=== PATIENT | male | born 1960 | race Caucasian/White ===

== ENCOUNTER 2019-03-08 13:16 | Inpatient (IN) | payer OTHER ==
[2019-03-08 17:34] VITALS: BMI 26.0
--- NOTE | 2019-03-08 18:27 | HP ---
"CIWA Score Nausea/Vomitin-No Nausea/No Vomiting Muscle Tremors: 4-Moderate,w/Arms Extend Anxiety: 4-Mod. Anxious/Guarded Agitation: 1-Slight > Activity Paroxysmal Sweats: No Perspiration Orientation: 0-Oriented Tacttile Disturbances: 2-Mild Itch/Numbness/Burn Auditory Disturbances: 0-None Visual Disturbances: 0-None Headache: 2-Mild CIWA-Ar Total Score: 13 - Admission Criteria OASAS Guidelines: Admission for Medically Managed Detox: Requires at least one of the followin. CIWA greater than 12 2. Seizures within the past 24 hours 3. Delirium tremens within the past 24 hours 4. Hallucinations within the past 24 hours 5. Acute intervention needed for co occurring medical disorder 6. Acute intervention needed for co occurring psychiatric disorder 7. Severe withdrawal that cannot be handled at a lower level of care (continued vomiting, continued diarrhea, abnormal vital signs) requiring intravenous medication and/or fluids 8. Admitting History and Physical - Smoking History Smoking history: Current every day smoker Have you smoked in the past 12 months: Yes Aproximately how many cigarettes per day: 20 - Alcohol/Substance Use Hx Alcohol Use: Yes Admission ROS [facility] Allergies/Adverse Reactions: Allergies Allergy/AdvReac Type Severity Reaction Status Date / Time buprenorphine HCl Allergy Swelling Verified 03/08/19 17:34 [From Suboxone] naloxone HCl [From Suboxone] Allergy Swelling Verified 03/08/19 17:34 History of Present Illness: pt here requesting detox from etoh use , reports 1/4 gallon/day vodka, relapsed 2 mo after d/c form this facility, use x 2 years , latest use this morning, current symptoms as above . latest use this morning . on mmtp 9 mg [facility] x 2 years , mdd 50 mg tobacco : 1 ppd x 40 years pmhx : dm ii , neck pain states planning to have surgery next week, rescheduled 2/2 etoh use . This report was requested by: Dari Pham | Reference #: [id number] Others' Prescriptions Patient Name: Abdoul Munoz Date: 1960 Address: [address] [place] [address] [address] [place] [address] Sex: Male Rx Written Rx Dispensed Drug Quantity Days Supply Prescriber Name 12/11/2018 12/13/2018 lorazepam 0.5 mg tablet 60 30 Steven Gutierrez MD 10/22/2018 10/22/2018 lorazepam 0.5 mg tablet 60 30 Gutierrez, Steven LUTHER 09/24/2018 09/27/2018 lorazepam 0.5 mg tablet 60 30 Gutierrez, Steven LUTHER 08/23/2018 08/24/2018 lorazepam 0.5 mg tablet 60 30 Gutierrez, Steven LUTHER 07/26/2018 07/27/2018 lorazepam 0.5 mg tablet 60 30 Steven Gutierrez MD Patient Name: Abdoul Munoz Date: 1960 Address: [address] [place] [address] Sex: Male Rx Written Rx Dispensed Drug Quantity Days Supply Prescriber Name 11/19/2018 12/07/2018 lorazepam 0.5 mg tablet 31 16 Steven Gutierrez MD Patient Name: Abdoul Munoz Date: 1960 Address: [address] [place] [address] Sex: Male Rx Written Rx Dispensed Drug Quantity Days Supply Prescriber Name 06/25/2018 06/25/2018 lorazepam 0.5 mg tablet 60 30 Steven Gutierrez MD 05/17/2018 05/28/2018 lorazepam 0.5 mg tablet 60 30 Gutierrez, Steven LUTHER 04/19/2018 05/01/2018 lorazepam 0.5 mg tablet 60 30 Steven Gutierrez MD Exam Limitations: No Limitations - Ebola screening Have you traveled outside of the country in the last 21 days: No (N) Have you had contact with anyone from an Ebola affected area: No Do you have a fever: No - Review of Systems Constitutional: No Symptoms Reported EENT: reports: Other (glasses) Respiratory: reports: No Symptoms reported Cardiac: reports: No Symptoms Reported GI: reports: Constipated : reports: No Symptoms Reported Musculoskeletal: reports: See HPI Integumentary: reports: No Symptoms Reported Neuro: reports: Headache Endocrine: reports: See HPI Psychiatric: reports: Orientated x3, Anxious, Depressed Patient History - Patient Medical History Hx Anemia: No Hx Asthma: No Hx Chronic Obstructive Pulmonary Disease (COPD): No Hx Cancer: No Hx Cardiac Disorders: No Hx Congestive Heart Failure: No Hx Hypertension: No Hx Hypercholesterolemia: No Hx Pacemaker: No HX Cerebrovascular Accident: No Hx Seizures: No Hx Dementia: No Hx Diabetes: Yes (no longer on meds.) Hx Gastrointestinal Disorders: Yes (GERD) Hx Liver Disease: No Hx Genitourinary Disorders: No Hx Sexually Transmitted Disorders: No Hx Renal Disease (ESRD): No Hx Thyroid Disease: No Hx Human Immunodeficiency Virus (HIV): No Hx Hepatitis C: No Hx Depression: Yes Hx Suicide Attempt: No Hx Bipolar Disorder: No Hx Schizophrenia: No - Patient Surgical History Past Surgical History: Yes Hx Neurologic Surgery: Yes (cervical spine sx IN 2012) Hx Cataract Extraction: No Hx Cardiac Surgery: No Hx Lung Surgery: No Hx Breast Surgery: No Hx Breast Biopsy: No Hx Abdominal Surgery: No Hx Appendectomy: No Hx Cholecystectomy: No Hx Genitourinary Surgery: No Hx Section: No Hx Orthopedic Surgery: Yes (arthroscopic surgery of left shoulder) Other Surgical History: NECK SX-2012 cevical fusion Anesthesia Reaction: No - PPD History Date: 10/11/14 Results: 0 mm - Smoking Cessation Smoking history: Current every day smoker Have you smoked in the past 12 months: Yes Aproximately how many cigarettes per day: 20 Cigars Per Day: 0 Hx Chewing Tobacco Use: No Initiated information on smoking cessation: Yes 'Breaking Loose' booklet given: 03/08/19 - Substances abused Alcohol Substance route: Oral Frequency: Daily Amount used: 1/4 of Vodka Age of first use: 30 Date of last use: 03/08/19 Admission Physical Exam BHS - Vital Signs Vital Signs: Vital Signs - 24 hr 03/08/19 17:31 Temperature 97.9 F Pulse Rate 90 Respiratory 16 Rate Blood Pressure 171/88 H - Physical General Appearance: Yes: Mild Distress, Tremorous, Anxious HEENTM: Yes: EOMI, Hearing grossly Normal, Normocephalic, Normal Voice Respiratory: Yes: Chest Non-Tender, Lungs Clear, Normal Breath Sounds, No Respiratory Distress, No Accessory Muscle Use Neck: Yes: No masses,lesions,Nodules, Trachea in good position Cardiology: Yes: Regular Rhythm, Regular Rate, S1, S2, Tachycardia Abdominal: Yes: Non Tender, Soft Musculoskeletal: Yes: Gait Steady Extremities: Yes: Normal Range of Motion, Non-Tender, Tremors (isabel UE) Neurological: Yes: Fully Oriented, Alert, Motor Strength 5/5, Normal Mood/Affect Integumentary: Yes: Warm - Diagnostic (1) Alcohol dependence with uncomplicated withdrawal Current Visit: Yes Status: Acute (2) Opioid dependence on agonist therapy Current Visit: Yes Status: Acute (3) Nicotine dependence Current Visit: Yes Status: Chronic Qualifiers: Nicotine product type: cigarettes Substance use status: uncomplicated Qualified Code(s): F17.210 - Nicotine dependence, cigarettes, uncomplicated Breathalyzer - Breathalyzer Breathalyzer: 0 Urine Drug Screen - Test Device Lot number: [id number] Expiration date: 10/12/20 - Control Is test valid?: Yes - Results Drug screen NEGATIVE: No Urine drug screen results: MTD-Methadone Inpatient Rehab Admission - Rehab Decision to Admit Inpatient rehab admission?: No"
[2019-03-08] MEDS ORDERED: diazePAM 5 MG TABLET PO ONE (18:39)
[2019-03-08] MEDS ORDERED: MAGNESIUM CITRATE 300 ML BOTTLE PO PRN (18:39)
[2019-03-08] MEDS ORDERED: IBUPROFEN 400 MG TABLET (FP) PO PRN (18:39)
[2019-03-08] MEDS ORDERED: MAGNESIUM HYDROX 2400MG/30ML ORAL SUSPENSION 30 ML CUP PO PRN (18:39)
[2019-03-08] MEDS ORDERED: BISMUTH SUBSALICYLATE 524 MG/30 ML UD PO PRN (18:39)
[2019-03-08] MEDS ORDERED: hydrOXYzine PAMOATE 25 MG CAPSULE (FP) PO PRN (18:39)
[2019-03-08] MEDS ORDERED: diazePAM 5 MG TABLET PO PRN (18:39)
[2019-03-08] MEDS ORDERED: NICOTINE POLACRILEX 2 MG GUM BUC PRN (18:39)
[2019-03-08] MEDS ORDERED: MAG HYDROX/AL HYDROX/SIMETH 30 ML UNIT-DOSE CUP PO PRN (18:39)
[2019-03-08] MEDS ORDERED: METHOCARBAMOL 500 MG TABLET PO PRN (18:39)
[2019-03-08] MEDS ORDERED: PROCHLORPERAZINE MALEATE 5 MG TABLET PO PRN (18:39)
[2019-03-08] MEDS ORDERED: MELATONIN 5 MG TABLETS PO PRN (18:39)
[2019-03-08] MEDS ORDERED: ACETAMINOPHEN 325 MG TABLET (FP) PO PRN ×2 (18:39)
[2019-03-08] MEDS ORDERED: MENTHOL/PHENOL 1 EACH UD MM PRN (18:39)
[2019-03-08] MEDS ORDERED: METOPROLOL TARTRATE 25 MG TABLET (FP) PO ONE (18:41)
[2019-03-08] MEDS ORDERED: cloNIDine HCL 0.1 MG TABLET PO PRN (18:42)
[2019-03-08] MEDS: THIAMINE HCL 100 MG TABLET (FP) PO SCH (22:52)
[2019-03-08] MEDS: diazePAM 5 MG TABLET PO SCH (22:53)
[2019-03-08] MEDS: traZODone HCL 100 MG TABLET (FP) PO SCH (22:53)
[2019-03-09] MEDS: diazePAM 5 MG TABLET PO SCH ×3 (05:57→21:44)
[2019-03-09] MEDS ORDERED: PATIENT'S OWN MEDICATION (NON-FORMULARY) (Empagliflozin [Jardiance] 10 MG) PO SCH (10:00)
[2019-03-09] MEDS: PRENATAL VITAMINS W/ FOLIC ACID TABLET (FP) PO SCH (10:16)
[2019-03-09 12:27] LABS: HEMATOCRIT 44.2 % (35.4-49); MCH 32.6 pg (25.7-33.7); MCHC 33.9 g/dl (32.0-35.9); MEAN CELL VOLUME 96.1 fl (80-96); MEAN PLT VOLUME 9.5 fl (7.5-11.1); PLATELET COUNT 166 K/MM3 (134-434); RDW 13.8 % (11.9-15.9); WHITE BLOOD COUNT 4.9 K/mm3 (4.0-10.0)
[2019-03-09 12:35] LABS: ALBUMIN 3.4 g/dl (3.4-5.0); BILIRUBIN,TOTAL 0.4 mg/dL (0.2-1); BLOOD UREA NITROGEN 16.4 mg/dL (7-18); CALCIUM 8.6 mg/dL (8.5-10.1); CREATININE 0.9 mg/dL (0.55-1.3); POTASSIUM 3.8 mmol/L (3.5-5.1); TOT PROT 6.4 g/dl (6.4-8.2)
--- NOTE | 2019-03-09 12:59 | PN ---
S CIWA - CIWA Score Nausea/Vomitin-No Nausea/No Vomiting Muscle Tremors: 2 Anxiety: 3 Agitation: 0-Normal Activity Paroxysmal Sweats: 3 Orientation: 0-Oriented Tacttile Disturbances: 0-None Auditory Disturbances: 0-None Visual Disturbances: 0-None Headache: 2-Mild CIWA-Ar Total Score: 10 S Progress Note (SOAP) Subjective: c/o headache, anxiety, shakes, and interrupted sleep. Objective: 03/09/19 12:56 Vital Signs 03/09/19 06:41 Temperature 97 F L Pulse Rate 72 Respiratory 18 Rate Blood Pressure 129/73 Lab Results WBC 4.9 K/mm3 (4.0-10.0) 03/09/19 07:55 RBC 4.60 M/mm3 (4.00-5.60) 03/09/19 07:55 Hgb 15.0 GM/dL (11.7-16.9) 03/09/19 07:55 Hct 44.2 % (35.4-49) 03/09/19 07:55 MCV 96.1 fl (80-96) H 03/09/19 07:55 MCHC 33.9 g/dl (32.0-35.9) 03/09/19 07:55 RDW 13.8 % (11.9-15.9) 03/09/19 07:55 Plt Count 166 K/MM3 (134-434) 03/09/19 07:55 Sodium 138 mmol/L (136-145) 03/09/19 07:55 Potassium 3.8 mmol/L (3.5-5.1) 03/09/19 07:55 Chloride 104 mmol/L (98-107) 03/09/19 07:55 Carbon Dioxide 26 mmol/L (21-32) 03/09/19 07:55 Anion Gap 8 MMOL/L (8-16) 03/09/19 07:55 BUN 16.4 mg/dL (7-18) 03/09/19 07:55 Creatinine 0.9 mg/dL (0.55-1.3) 03/09/19 07:55 Random Glucose 257 mg/dL (74-106) H 03/09/19 07:55 Calcium 8.6 mg/dL (8.5-10.1) 03/09/19 07:55 Abnormal Lab Results 03/09/19 03/09/19 07:55 07:55 MCV 96.1 H Random Glucose 257 H AST 72 H ALT 140 H Labs noted with elevated AST/ALT. Assessment: 03/09/19 12:59 AOX3, in no acute respiratory distress. Full ROM, ambulating in the unit. withdrawal symptoms. Plan: continue detox.
[2019-03-09] MEDS ORDERED: METHADONE HCL 10 MG TABLET PO ONE ×2 (15:26→19:53)
--- NOTE | 2019-03-09 20:01 | PN ---
[facility] Progress Note Note: patient is on methadone maintenance on methadone 9 mgs/day,no varification, will give methadone 10 mgs po now and 10 mgs on 03/10/19 , to verify patient mmtp on Monday
[2019-03-09] MEDS: traZODone HCL 100 MG TABLET (FP) PO SCH (21:42)
[2019-03-09] MEDS: THIAMINE HCL 100 MG TABLET (FP) PO SCH (21:45)
[2019-03-10] MEDS: diazePAM 5 MG TABLET PO SCH ×2 (05:30→18:25)
[2019-03-10] MEDS ORDERED: METHADONE HCL 10 MG TABLET PO ONE (06:00)
[2019-03-10] MEDS: PRENATAL VITAMINS W/ FOLIC ACID TABLET (FP) PO SCH (10:26)
[2019-03-10] MEDS ORDERED: INSULIN SLIDING SCALE (NOVOLOG) 1 VIAL SQ ONE (11:24)
[2019-03-10] MEDS: INSULIN (NOVOLOG) ASPART 100 UNITS/ML 10ML VIAL SQ SCH ×2 (12:42→17:25)
--- NOTE | 2019-03-10 15:32 | PN ---
S CIWA - CIWA Score Nausea/Vomitin-Mild Nausea/No Vomiting Muscle Tremors: 2 Anxiety: 2 Agitation: 1-Slight > Activity Paroxysmal Sweats: 2 Orientation: 0-Oriented Tacttile Disturbances: 0-None Auditory Disturbances: 0-None Visual Disturbances: 0-None Headache: 0-None Present CIWA-Ar Total Score: 8 BHS Progress Note (SOAP) Subjective: Feels ok, patient stated he has DM and takes a new diabetic pill at home that this hospital doesn't carry. Patient stated he's not getting any insulin here for his DM and no FS has been done. Chart reviewed and patient started on FS with insulin coverage. Objective: 03/10/19 15:30 Last Vital Signs Temp Pulse Resp BP Pulse Ox 97 F L 73 18 135/81 03/10/19 09:54 03/10/19 09:54 03/10/19 09:54 03/10/19 09:54 Elevated b/p: has htn, on med Laboratory Tests 03/09/19 03/09/19 03/09/19 07:55 07:55 07:55 WBC 4.9 RBC 4.60 Hgb 15.0 Hct 44.2 MCV 96.1 H MCH 32.6 MCHC 33.9 RDW 13.8 Plt Count 166 MPV 9.5 Sodium 138 Potassium 3.8 Chloride 104 Carbon Dioxide 26 Anion Gap 8 BUN 16.4 Creatinine 0.9 Est GFR (CKD-EPI)AfAm 108.73 Est GFR (CKD-EPI)NonAf 93.82 POC Glucometer Random Glucose 257 H Calcium 8.6 Total Bilirubin 0.4 AST 72 H ALT 140 H Alkaline Phosphatase 88 Total Protein 6.4 Albumin 3.4 RPR Titer Nonreactive 03/10/19 11:26 WBC RBC Hgb Hct MCV MCH MCHC RDW Plt Count MPV Sodium Potassium Chloride Carbon Dioxide Anion Gap BUN Creatinine Est GFR (CKD-EPI)AfAm Est GFR (CKD-EPI)NonAf POC Glucometer 406 Random Glucose Calcium Total Bilirubin AST ALT Alkaline Phosphatase Total Protein Albumin RPR Titer Labs reviewed: serum glucose 257, POC glucose 406 (has DM), AST/ALT elevated Assessment: 03/10/19 15:32 Withdrawal sxs DM with hyperglycemia noted Elevated LFTs (AST/ALT) noted Plan: Continue detox Encouraged PO water intake Detox protocol adjusted for one more day of Diazepam 5mg PO x 1 on 03/12/19 due to withdrawal sxs plus DM needs to be stabilized DMT2 with hyperglycemia: start FS glucose TIDAC, start Novolog insulin 5 units TIDAC (hold if FS < 130mg/dl) give with novolog sliding scale, patient to resume his home medication upon discharge and to follow up with his PCP, doesn' t need any Rx Elevated LFTs: most likely due to alcoholism, repeat AST/ALT, send HCV Ab
[2019-03-10] MEDS ORDERED: INSULIN (NOVOLOG) ASPART 100 UNITS/ML 10ML VIAL SQ ONE (17:50)
--- NOTE | 2019-03-10 17:52 | PN ---
[facility] Progress Note Note: [facility] 333,will give novolog 8 unit sq now then sliding scale
[2019-03-10] MEDS: traZODone HCL 100 MG TABLET (FP) PO SCH (22:31)
[2019-03-10] MEDS: INSULIN SLIDING SCALE (NOVOLOG) 1 VIAL SQ SCH (22:31)
[2019-03-10] MEDS: THIAMINE HCL 100 MG TABLET (FP) PO SCH (22:32)
[2019-03-11] MEDS ORDERED: diazePAM 5 MG TABLET PO ONE (06:00)
[2019-03-11] MEDS: INSULIN SLIDING SCALE (NOVOLOG) 1 VIAL SQ SCH ×4 (06:49→21:23)
[2019-03-11 09:59] LABS: SGOT/AST 167 U/L (15-37); SGPT/ALT 274 U/L (13-61)
[2019-03-11] MEDS: PRENATAL VITAMINS W/ FOLIC ACID TABLET (FP) PO SCH (11:37)
[2019-03-11] MEDS ORDERED: NICOTINE 21 MG/24 HOURS TOPICAL PATCH TD SCH (11:45)
[2019-03-11] MEDS ORDERED: METHADONE HCL 10 MG TABLET PO ONE (12:13)
--- NOTE | 2019-03-11 16:20 | PN ---
S CIWA - CIWA Score Nausea/Vomitin-Mild Nausea/No Vomiting Muscle Tremors: 1-None Visible, but [place] Anxiety: 2 Agitation: 2 Paroxysmal Sweats: No Perspiration Orientation: 0-Oriented Tacttile Disturbances: 1-Very Mild Itch/Numbness Auditory Disturbances: 0-None Visual Disturbances: 0-None Headache: 1-Very Mild CIWA-Ar Total Score: 8 BHS Progress Note (SOAP) Subjective: alert,irritable,anxious,interrupted sleep,pain in the body Objective: 03/11/19 16:18 Vital Signs Temperature 97.7 F 03/11/19 13:24 Pulse Rate 80 03/11/19 13:24 Respiratory Rate 20 03/11/19 13:24 Blood Pressure 135/73 03/11/19 13:24 O2 Sat by Pulse Oximetry (%) 03/11/19 16:18 Abnormal Lab Results 03/11/19 08:30 AST 167 H ALT 274 H 03/11/19 16:19 Laboratory Tests 03/09/19 03/09/19 03/09/19 07:55 07:55 07:55 WBC 4.9 RBC 4.60 Hgb 15.0 Hct 44.2 MCV 96.1 H MCH 32.6 MCHC 33.9 RDW 13.8 Plt Count 166 MPV 9.5 Sodium 138 Potassium 3.8 Chloride 104 Carbon Dioxide 26 Anion Gap 8 BUN 16.4 Creatinine 0.9 Est GFR (CKD-EPI)AfAm 108.73 Est GFR (CKD-EPI)NonAf 93.82 POC Glucometer Random Glucose 257 H Calcium 8.6 Total Bilirubin 0.4 AST 72 H ALT 140 H Alkaline Phosphatase 88 Total Protein 6.4 Albumin 3.4 RPR Titer Nonreactive 03/10/19 03/10/19 03/10/19 11:26 16:16 22:29 WBC RBC Hgb Hct MCV MCH MCHC RDW Plt Count MPV Sodium Potassium Chloride Carbon Dioxide Anion Gap BUN Creatinine Est GFR (CKD-EPI)AfAm Est GFR (CKD-EPI)NonAf POC Glucometer 406 332 345 Random Glucose Calcium Total Bilirubin AST ALT Alkaline Phosphatase Total Protein Albumin RPR Titer 03/11/19 03/11/19 03/11/19 06:38 08:30 12:00 WBC RBC Hgb Hct MCV MCH MCHC RDW Plt Count MPV Sodium Potassium Chloride Carbon Dioxide Anion Gap BUN Creatinine Est GFR (CKD-EPI)AfAm Est GFR (CKD-EPI)NonAf POC Glucometer 296 428 Random Glucose Calcium Total Bilirubin AST 167 H ALT 274 H Alkaline Phosphatase Total Protein Albumin RPR Titer Assessment: 03/11/19 16:18 withdrawal symptom Plan: continue detox,bgm monitoring with novolog coverage sliding scale,discharge in am
[2019-03-11] MEDS: THIAMINE HCL 100 MG TABLET (FP) PO SCH (21:20)
[2019-03-11] MEDS: traZODone HCL 100 MG TABLET (FP) PO SCH (21:20)
[2019-03-11] MEDS ORDERED: INSULIN (LEVEMIR) 100 UNITS/ML UNITS SQ SCH (22:00)
[2019-03-12] MEDS ORDERED: METHADONE HCL 10 MG TABLET PO SCH (06:00)
[2019-03-12] MEDS ORDERED: diazePAM 5 MG TABLET PO ONE (06:00)
[2019-03-12] MEDS: INSULIN SLIDING SCALE (NOVOLOG) 1 VIAL SQ SCH (06:46)
--- NOTE | 2019-03-12 09:08 | DS ---
[facility] Detox Discharge Summary Admission Date: 03/08/19 Discharge Date: 03/12/19 - History Present History: Alcohol Dependence, MMTP - Physical Exam Results Vital Signs: Vital Signs Temperature 97.9 F 03/12/19 05:58 Pulse Rate 69 03/12/19 05:58 Respiratory Rate 18 03/12/19 05:58 Blood Pressure 111/53 L 03/12/19 05:58 O2 Sat by Pulse Oximetry (%) Pertinent Admission Physical Exam Findings: pt arrived in withdrawals Vital Signs Temperature 97.9 F 03/12/19 05:58 Pulse Rate 69 03/12/19 05:58 Respiratory Rate 18 03/12/19 05:58 Blood Pressure 111/53 L 03/12/19 05:58 O2 Sat by Pulse Oximetry (%) Laboratory Tests 03/09/19 03/09/19 03/09/19 07:55 07:55 07:55 WBC 4.9 RBC 4.60 Hgb 15.0 Hct 44.2 MCV 96.1 H MCH 32.6 MCHC 33.9 RDW 13.8 Plt Count 166 MPV 9.5 Sodium 138 Potassium 3.8 Chloride 104 Carbon Dioxide 26 Anion Gap 8 BUN 16.4 Creatinine 0.9 Est GFR (CKD-EPI)AfAm 108.73 Est GFR (CKD-EPI)NonAf 93.82 POC Glucometer Random Glucose 257 H Calcium 8.6 Total Bilirubin 0.4 AST 72 H ALT 140 H Alkaline Phosphatase 88 Total Protein 6.4 Albumin 3.4 RPR Titer Nonreactive Hep C Ab Diagnostic 03/10/19 03/10/19 03/10/19 11:26 16:16 22:29 WBC RBC Hgb Hct MCV MCH MCHC RDW Plt Count MPV Sodium Potassium Chloride Carbon Dioxide Anion Gap BUN Creatinine Est GFR (CKD-EPI)AfAm Est GFR (CKD-EPI)NonAf POC Glucometer 406 332 345 Random Glucose Calcium Total Bilirubin AST ALT Alkaline Phosphatase Total Protein Albumin RPR Titer Hep C Ab Diagnostic 03/11/19 03/11/19 03/11/19 06:38 08:30 08:30 WBC RBC Hgb Hct MCV MCH MCHC RDW Plt Count MPV Sodium Potassium Chloride Carbon Dioxide Anion Gap BUN Creatinine Est GFR (CKD-EPI)AfAm Est GFR (CKD-EPI)NonAf POC Glucometer 296 Random Glucose Calcium Total Bilirubin AST 167 H ALT 274 H Alkaline Phosphatase Total Protein Albumin RPR Titer Hep C Ab Diagnostic <0.1 03/11/19 03/11/19 03/11/19 12:00 16:39 21:13 WBC RBC Hgb Hct MCV MCH MCHC RDW Plt Count MPV Sodium Potassium Chloride Carbon Dioxide Anion Gap BUN Creatinine Est GFR (CKD-EPI)AfAm Est GFR (CKD-EPI)NonAf POC Glucometer 428 375 347 Random Glucose Calcium Total Bilirubin AST ALT Alkaline Phosphatase Total Protein Albumin RPR Titer Hep C Ab Diagnostic 03/12/19 06:43 WBC RBC Hgb Hct MCV MCH MCHC RDW Plt Count MPV Sodium Potassium Chloride Carbon Dioxide Anion Gap BUN Creatinine Est GFR (CKD-EPI)AfAm Est GFR (CKD-EPI)NonAf POC Glucometer 237 Random Glucose Calcium Total Bilirubin AST ALT Alkaline Phosphatase Total Protein Albumin RPR Titer Hep C Ab Diagnostic today pt is aaox3 ambulating no acute distress no s/s of withdrawals - Treatment Hospital Course: Detox Protocol Followed, Detoxed Safely, Responded well, Discharged Condition Good, Rehab Referral Accepted Patient has Accepted a Rehab Referral to: pt declined rehab; referral provided - Medication Discharge Medications: Ambulatory Orders Empagliflozin [Jardiance] 10 mg PO DAILY 03/08/19 traZODone HCL [Desyrel -] 50 mg PO HS 03/08/19 - Diagnosis (1) Alcohol dependence with uncomplicated withdrawal Current Visit: Yes Status: Chronic (2) Opioid dependence on agonist therapy Current Visit: Yes Status: Acute (3) Nicotine dependence Current Visit: Yes Status: Chronic Qualifiers: Nicotine product type: cigarettes Substance use status: uncomplicated Qualified Code(s): F17.210 - Nicotine dependence, cigarettes, uncomplicated (4) Depression Current Visit: No Status: Chronic Qualifiers: Depression Type: unspecified Qualified Code(s): F32.9 - Major depressive disorder, single episode, unspecified (5) GERD (gastroesophageal reflux disease) Current Visit: Yes Status: Chronic Qualifiers: Esophagitis presence: without esophagitis Qualified Code(s): K21.9 - Gastro -esophageal reflux disease without esophagitis (6) History of neck surgery Current Visit: No Status: Chronic (7) MDD (major depressive disorder), recurrent, severe, with psychosis Current Visit: No Status: Chronic (8) Methadone maintenance therapy patient Current Visit: Yes Status: Chronic (9) PTSD (post-traumatic stress disorder) Current Visit: No Status: Chronic (10) Type 2 diabetes mellitus with hyperglycemia Current Visit: No Status: Chronic - AMA Did Patient Leave Against Medical Advice: No
[2019-03-12 09:46] VITALS: BP 145/77; PULSE 98; TEMP 97.5
== END 2019-03-12 10:08 | disposition home or self-care (01) | DRG 897 ==
LOC: YASAS 13:16 → Y6N 19:18
PROVIDERS: ADMIT Allergy & Immunology; ATTEND Allergy & Immunology
PROC: HZ2ZZZZ Detoxification Services for Substance Abuse Treatment (ICD-10-PCS; principal; 2019-03-08)
DX: F10.230 Alcohol dependence with withdrawal, uncomplicated (principal); F11.20 Opioid dependence, uncomplicated; F33.3 Major depressive disorder, recurrent, severe with psychotic symptoms; F17.210 Nicotine dependence, cigarettes, uncomplicated; F43.10 Post-traumatic stress disorder, unspecified; E11.65 Type 2 diabetes mellitus with hyperglycemia; K21.9 Gastro-esophageal reflux disease without esophagitis; R94.5 Abnormal results of liver function studies; Z88.8 Allergy status to other drugs, medicaments and biological substances
CPT/HCPCS: 36415; 80053; 82962; 84450; 84460; 85027; 86593; 86803

== ENCOUNTER 2022-11-08 13:31 | Inpatient (IN) | payer OTHER ==
[2022-11-08 14:27] VITALS: BMI 27.1
[2022-11-08] MEDS ORDERED: methaDONE HCL 10 MG TABLET (FOR DETOX USE ONLY) PO ONE (15:14)
[2022-11-08] MEDS ORDERED: cloNIDine HCL 0.1 MG TABLET PO PRN (15:14)
[2022-11-08] MEDS ORDERED: BENZOCAINE/MENTHOL (CHLORASEPTIC ) LOZENGE MM PRN (15:15)
[2022-11-08] MEDS ORDERED: ONDANSETRON *ODT* 4 MG TABLET SL PRN (15:15)
[2022-11-08] MEDS ORDERED: NICOTINE 10 MG CARTRIDGE (INHALER) IH PRN (15:15)
[2022-11-08] MEDS ORDERED: NALOXONE HCL (KLOXXADO) 8 MG SPRAY NS PRN (15:15)
[2022-11-08] MEDS ORDERED: MAG HYDROX/AL HYDROX/SIMETH 30 ML UNIT-DOSE CUP PO PRN (15:15)
[2022-11-08] MEDS ORDERED: POLYETHYLENE GLYCOL (HEALTHYLAX) 3350 17 GM PACKET PO PRN (15:15)
[2022-11-08] MEDS ORDERED: hydrOXYzine PAMOATE 25 MG CAPSULE (FP) PO PRN (15:15)
[2022-11-08] MEDS ORDERED: LOPERAMIDE HCL 2 MG CAPSULE PO PRN (15:15)
[2022-11-08] MEDS ORDERED: NICOTINE POLACRILEX 2 MG GUM BUC PRN (15:15)
[2022-11-08] MEDS ORDERED: BENZONATATE 200 MG CAPSULE PO PRN (15:15)
[2022-11-08] MEDS ORDERED: METHOCARBAMOL 500 MG TABLET PO PRN (15:15)
[2022-11-08] MEDS ORDERED: DICYCLOMINE HCL 10 MG CAPSULE PO PRN (15:15)
[2022-11-08] MEDS ORDERED: guaiFENesin 600 MG TABLET.ER (FP) PO PRN (15:15)
[2022-11-08] MEDS ORDERED: NALOXONE HCL 0.4 MG/ML VIAL IM PRN (15:15)
[2022-11-08] MEDS ORDERED: ACETAMINOPHEN 325 MG TABLET (FP) PO PRN (15:15)
[2022-11-08] MEDS ORDERED: MAGNESIUM HYDROX 2400MG/30ML ORAL SUSPENSION 30 ML CUP PO PRN (15:15)
[2022-11-08] MEDS ORDERED: P-EPHED 60MG/TRIPROLIDI 2.5MG TABLET PO PRN (15:15)
[2022-11-08] MEDS: diazePAM 5 MG TABLET PO PRN ×2 (15:57→20:22)
[2022-11-08] MEDS ORDERED: diazePAM 5 MG TABLET ONE (15:59)
[2022-11-08] MEDS ORDERED: methaDONE HCL 10 MG TABLET (FOR DETOX USE ONLY) ONE (15:59)
[2022-11-08] MEDS: INSULIN SLIDING SCALE (NOVOLOG) 1 VIAL SQ SCH ×3 (16:38→21:52)
[2022-11-08] MEDS ORDERED: hydrOXYzine PAMOATE 25 MG CAPSULE (FP) PO ONE (16:51)
[2022-11-08 17:25] VITALS: RESP 18
[2022-11-08] MEDS ORDERED: FLUTICASONE PROP 0.05% 16 GM NASAL SPRAY NS PRN (21:06)
[2022-11-08 21:50] VITALS: BP 155/60; PULSE 77; TEMP 98
[2022-11-08] MEDS ORDERED: THIAMINE HCL 100 MG TABLET (FP) PO SCH (22:00)
[2022-11-08] MEDS ORDERED: MELATONIN 5 MG TABLETS PO SCH (22:00)
[2022-11-09] MEDS ORDERED: PRENATAL VITAMINS W/ FOLIC ACID TABLET (FP) PO SCH (10:00)
[2022-11-10] MEDS ORDERED: methaDONE HCL 10 MG TABLET (FOR DETOX USE ONLY) PO ONE (10:00)
== END 2022-11-08 23:55 | disposition short-term general hospital (02) | DRG 897 ==
LOC: YASAS 13:31 → Y3N 16:01
PROVIDERS: ADMIT Allergy & Immunology; ATTEND Psychiatry & Neurology Pain Medicine
PROC: HZ2ZZZZ Detoxification Services for Substance Abuse Treatment (ICD-10-PCS; principal; 2022-11-08)
DX: F11.23 Opioid dependence with withdrawal (principal); F10.230 Alcohol dependence with withdrawal, uncomplicated; F17.210 Nicotine dependence, cigarettes, uncomplicated; I10 Essential (primary) hypertension; E11.9 Type 2 diabetes mellitus without complications; Z79.4 Long term (current) use of insulin; R26.89 Other abnormalities of gait and mobility; W19.XXXA Unspecified fall, initial encounter; Y92.232 Corridor of hospital as the place of occurrence of the external cause
CPT/HCPCS: 82962; 87635

== ENCOUNTER 2022-11-08 22:43 | Inpatient (IN) | payer OTHER ==
[2022-11-08] MEDS ORDERED: LORazepam 2 MG/ML SDV VIAL IVPUSH ONE ×2 (23:05→23:22)
[2022-11-08] MEDS ORDERED: chlordiazePOXIDE HCL 25 MG CAPSULE PO ONE (23:05)
[2022-11-08] MEDS ORDERED: chlordiazePOXIDE HCL 25 MG CAPSULE ONE (23:08)
[2022-11-08 23:35] LABS: BASO % 0.3 % (0-2.0); EOS % 3.8 % (0-4.5); HEMATOCRIT 42.3 % (35.4-49); HEMOGLOBIN 14.4 GM/dL (11.7-16.9); LYMPH % 41.2 % (8-40); MCH 31.4 pg (25.7-33.7); MCHC 34.1 g/dl (32.0-35.9); NEUT % 44.7 % (42.8-82.8); PLATELET COUNT 218 10^3/uL (134-434); WHITE BLOOD COUNT 6.9 K/mm3 (4.0-10.0)
[2022-11-08] MEDS ORDERED: diazePAM CARPU-JECT 10 MG/2 ML DISP.SYRIN IVPUSH ONE (23:40)
[2022-11-08] MEDS ORDERED: diazePAM CARPU-JECT 10 MG/2 ML DISP.SYRIN ONE (23:40)
[2022-11-08 23:41] LABS: INR 0.93 (0.83-1.09); PROTHROMBIN TIME (PATIENT) 10.8 SEC (9.7-13.0)
[2022-11-08 23:44] LABS: ACTIVATED PTT 28.1 SECONDS (25.2-36.5)
[2022-11-09 00:08] LABS: POTASSIUM 3.9 mmol/L (3.5-5.1)
[2022-11-09 00:09] LABS: ALBUMIN 3.4 g/dl (3.4-5.0); BLOOD UREA NITROGEN 14.7 mg/dL (7-18); CALCIUM 9.1 mg/dL (8.5-10.1)
[2022-11-09 00:13] LABS: CREATININE 0.8 mg/dL (0.55-1.3)
[2022-11-09 00:14] LABS: BILIRUBIN,TOTAL 0.2 mg/dL (0.2-1)
[2022-11-09 00:15] LABS: TOT PROT 6.4 g/dl (6.4-8.2)
[2022-11-09] MEDS ORDERED: LORazepam 2 MG/ML SDV VIAL IVPUSH ONE (00:18)
[2022-11-09] MEDS ORDERED: DEXMEDETOMIDINE PREMIX 400 MCG/100 ML BAG IVPB ONE (00:37)
[2022-11-09] MEDS ORDERED: LORazepam 2 MG/ML SDV VIAL IVPUSH STA ×3 (01:19→06:32)
[2022-11-09] MEDS ORDERED: THIAMINE HCL 200 MG/2 ML VIAL IVPB ONE (01:20)
[2022-11-09] MEDS: DEXMEDETOMIDINE PREMIX 400 MCG/100 ML BAG IVPB SCH ×7 (01:28→20:02)
[2022-11-09] MEDS ORDERED: FOLIC ACID INJECTION - 1 MG, THIAMINE HCL 100 MG, MULTIVIT INJECTION ADULT 10 ML in SOD... IVPB ONE ×2 (03:30→06:00)
[2022-11-09] MEDS: HEPARIN NA (PORCINE) 5,000 UNITS/ML 1ML VIAL SQ SCH ×3 (05:35→20:59)
[2022-11-09] MEDS: INSULIN SLIDING SCALE (NOVOLOG) 1 VIAL SQ SCH ×4 (06:17→21:00)
[2022-11-09 08:14] LABS: POTASSIUM 4.3 mmol/L (3.5-5.1)
[2022-11-09] MEDS ORDERED: NICARDIPINE 25 MG in DEXTROSE 5%-WATER - 240 ML IVPB SCH (08:15)
[2022-11-09 08:18] LABS: CALCIUM 8.8 mg/dL (8.5-10.1)
[2022-11-09 08:19] LABS: BLOOD UREA NITROGEN 11.7 mg/dL (7-18); MAGNESIUM 1.8 mg/dL (1.8-2.4)
[2022-11-09] MEDS ORDERED: cloNIDine-TTS 0.1 MG/24 HRS PATCH.TDWK TD SCH ×2 (08:19→10:00)
[2022-11-09 08:21] LABS: CREATININE 0.7 mg/dL (0.55-1.3); PHOSPHOROUS 1.9 mg/dL (2.5-4.9)
[2022-11-09] MEDS ORDERED: cloNIDine-TTS 0.3 MG /24 HRS PATCH.TDWK TD SCH (08:22)
[2022-11-09 08:53] LABS: ARTERIAL BLD GAS O2 SATURATION 95.2 % (95-98); ARTERIAL BLOOD GAS BASE EXCESS 0.5 mmol/L (-2-2); ARTERIAL BLOOD GAS PO2 69.2 mmHg (80-100); ARTERIAL BLOOD GAS pH 7.481 (7.350-7.450)
[2022-11-09] MEDS ORDERED: NALOXONE HCL 0.4 MG/ML VIAL IVPUSH ONE (09:30)
[2022-11-09] MEDS: PANTOPRAZOLE SODIUM 40 MG VIAL IVPUSH SCH (10:32)
[2022-11-09] MEDS: MULTIVITAMINS (DAILY MVI) TABLET (FP) PO SCH (10:33)
[2022-11-09] MEDS: THIAMINE HCL 200 MG/2 ML VIAL IVPB SCH (10:33)
[2022-11-09] MEDS ORDERED: LACTATED RINGERS SOLUTION 1,000 ML/1,000 ML INFUS.BAG IV SCH (11:30)
[2022-11-09] MEDS ORDERED: SODIUM CHLORIDE IVPB ONE (12:02)
[2022-11-09] MEDS ORDERED: SODIUM PHOSPHATE IVPB ONE (12:02)
[2022-11-09] MEDS ORDERED: INSULIN (NOVOLOG) ASPART 100 UNITS/ML 10ML VIAL ONE (12:12)
[2022-11-09 14:49] LABS: PH,URINE 7.5 (5.0-8.0); URINE APPEARANCE CLEAR; URINE BILIRUBIN NEGATIVE (NEGATIVE); URINE COLOR YELLOW; URINE GLUCOSE (UA) NEGATIVE (NEGATIVE); URINE KETONE 2+ (NEGATIVE); URINE LEUK ESTERASE NEGATIVE (NEGATIVE); URINE NITRITE NEGATIVE (NEGATIVE); URINE PROTEIN TRACE (NEGATIVE); URINE UROBILINOGEN 0.2 mg/dL (0.2-1.0)
[2022-11-09 16:41] LABS: PHENCYCLIDINE,URINE NEGATIVE (NEGATIVE); URINE BARBITURATES NEGATIVE (NEGATIVE)
[2022-11-09 16:45] LABS: METHADONE, UR NEGATIVE (NEGATIVE)
[2022-11-09 16:58] LABS: OPIATES, URI NEGATIVE (NEGATIVE)
[2022-11-09 17:37] LABS: COCAINE, UR NEGATIVE (NEGATIVE); URINE AMPHETAMINES NEGATIVE (NEGATIVE); URINE BENZODIAZEPINES POSITIVE (NEGATIVE)
[2022-11-10] MEDS ORDERED: LACTATED RINGERS SOLUTION 1,000 ML/1,000 ML INFUS.BAG IV SCH (02:34)
[2022-11-10] MEDS: DEXMEDETOMIDINE PREMIX 400 MCG/100 ML BAG IVPB SCH ×8 (02:38→21:11)
[2022-11-10] MEDS: INSULIN SLIDING SCALE (NOVOLOG) 1 VIAL SQ SCH ×4 (05:59→21:11)
[2022-11-10] MEDS: HEPARIN NA (PORCINE) 5,000 UNITS/ML 1ML VIAL SQ SCH ×3 (05:59→21:11)
[2022-11-10] MEDS: LORazepam 2 MG/ML SDV VIAL IVPUSH PRN ×5 (07:11→21:54)
[2022-11-10 07:54] LABS: BASO % 0.6 % (0-2.0); EOS % 0.1 % (0-4.5); HEMOGLOBIN 15.5 GM/dL (11.7-16.9); LYMPH % 14.1 % (8-40); MCHC 33.1 g/dl (32.0-35.9); MEAN CELL VOLUME 93.7 fl (80-96); MEAN PLT VOLUME 9.4 fl (7.5-11.1); NEUT % 79.2 % (42.8-82.8); PLATELET COUNT 188 10^3/uL (134-434); RBC 5.01 M/mm3 (4.00-5.60); RDW 13.9 % (11.9-15.9); WHITE BLOOD COUNT 12.8 K/mm3 (4.0-10.0)
[2022-11-10 08:09] LABS: POTASSIUM 4.3 mmol/L (3.5-5.1)
[2022-11-10 08:26] LABS: CALCIUM 8.8 mg/dL (8.5-10.1)
[2022-11-10 08:27] LABS: ALBUMIN 2.9 g/dl (3.4-5.0); MAGNESIUM 1.8 mg/dL (1.8-2.4)
[2022-11-10 08:29] LABS: BILIRUBIN,TOTAL 0.8 mg/dL (0.2-1); CREATININE 0.7 mg/dL (0.55-1.3); PHOSPHOROUS 3.9 mg/dL (2.5-4.9); TOT PROT 5.9 g/dl (6.4-8.2)
[2022-11-10] MEDS: PANTOPRAZOLE SODIUM 40 MG VIAL IVPUSH SCH (10:19)
[2022-11-10] MEDS: THIAMINE HCL 200 MG/2 ML VIAL IVPB SCH (10:19)
[2022-11-10] MEDS: MULTIVITAMINS (DAILY MVI) TABLET (FP) PO SCH (10:20)
[2022-11-10] MEDS: LISINOPRIL 5 MG TABLET PO SCH (15:40)
[2022-11-10] MEDS: LACTATED RINGERS SOLUTION 1,000 ML/1,000 ML INFUS.BAG IV SCH (15:44)
[2022-11-10] MEDS ORDERED: methaDONE HCL 10 MG TABLET PO ONE (15:45)
[2022-11-10] MEDS ORDERED: INSULIN (NOVOLOG) ASPART 100 UNITS/ML 10ML VIAL ONE (16:27)
[2022-11-11] MEDS: LORazepam 2 MG/ML SDV VIAL IVPUSH PRN ×4 (00:55→14:05)
[2022-11-11] MEDS: LACTATED RINGERS SOLUTION 1,000 ML/1,000 ML INFUS.BAG IV SCH ×2 (00:59→10:31)
[2022-11-11] MEDS: DEXMEDETOMIDINE PREMIX 400 MCG/100 ML BAG IVPB SCH ×6 (01:19→21:06)
[2022-11-11] MEDS ORDERED: INSULIN (NOVOLOG) ASPART 100 UNITS/ML 10ML VIAL ONE ×3 (06:22→17:14)
[2022-11-11] MEDS: HEPARIN NA (PORCINE) 5,000 UNITS/ML 1ML VIAL SQ SCH ×3 (06:25→21:06)
[2022-11-11] MEDS: INSULIN SLIDING SCALE (NOVOLOG) 1 VIAL SQ SCH ×4 (06:25→21:06)
[2022-11-11 07:11] LABS: BASO % 0.6 % (0-2.0); EOS % 0.5 % (0-4.5); HEMOGLOBIN 14.3 GM/dL (11.7-16.9); LYMPH % 14.7 % (8-40); MCH 31.2 pg (25.7-33.7); MCHC 33.3 g/dl (32.0-35.9); MEAN CELL VOLUME 93.6 fl (80-96); MEAN PLT VOLUME 9.4 fl (7.5-11.1); MONO % 6.7 % (3.8-10.2); NEUT % 77.5 % (42.8-82.8); PLATELET COUNT 186 10^3/uL (134-434); RBC 4.59 M/mm3 (4.00-5.60); RDW 13.8 % (11.9-15.9); WHITE BLOOD COUNT 12.5 K/mm3 (4.0-10.0)
[2022-11-11 08:13] LABS: POTASSIUM 3.9 mmol/L (3.5-5.1)
[2022-11-11 08:18] LABS: ALBUMIN 2.6 g/dl (3.4-5.0); BLOOD UREA NITROGEN 13.2 mg/dL (7-18); CALCIUM 8.2 mg/dL (8.5-10.1); MAGNESIUM 1.6 mg/dL (1.8-2.4)
[2022-11-11 08:20] LABS: PHOSPHOROUS 1.9 mg/dL (2.5-4.9)
[2022-11-11 08:22] LABS: BILIRUBIN,TOTAL 0.6 mg/dL (0.2-1); CREATININE 0.7 mg/dL (0.55-1.3); TOT PROT 5.4 g/dl (6.4-8.2)
[2022-11-11] MEDS ORDERED: ALBUTEROL SO4 2.5/IPRATROPIUM 0.5 INH SOL 3 ML VIAL.NEB. NEB ONE (08:46)
[2022-11-11] MEDS ORDERED: MAGNESIUM 2GM/50ML STERILE WATER IVPB IVPB ONE (09:00)
[2022-11-11] MEDS ORDERED: POTASSIUM PHOSPHATE 30 MM in DEXTROSE 5%-WATER - 250 ML IVPB ONE (10:00)
[2022-11-11] MEDS: PANTOPRAZOLE SODIUM 40 MG VIAL IVPUSH SCH (10:16)
[2022-11-11] MEDS: MULTIVITAMINS (DAILY MVI) TABLET (FP) PO SCH (10:16)
[2022-11-11] MEDS: LISINOPRIL 5 MG TABLET PO SCH (10:16)
[2022-11-11] MEDS: THIAMINE HCL 200 MG/2 ML VIAL IVPB SCH (10:17)
[2022-11-11 12:39] VITALS: BMI 26.2
[2022-11-12] MEDS: LORazepam 2 MG/ML SDV VIAL IVPUSH PRN (02:57)
[2022-11-12] MEDS: DEXMEDETOMIDINE PREMIX 400 MCG/100 ML BAG IVPB SCH (03:09)
[2022-11-12] MEDS: INSULIN SLIDING SCALE (NOVOLOG) 1 VIAL SQ SCH ×4 (06:31→21:09)
[2022-11-12] MEDS: HEPARIN NA (PORCINE) 5,000 UNITS/ML 1ML VIAL SQ SCH ×3 (06:31→21:09)
[2022-11-12 07:00] LABS: BASO % 0.9 % (0-2.0); EOS % 2.2 % (0-4.5); HEMATOCRIT 42.2 % (35.4-49); LYMPH % 23.4 % (8-40); MCH 30.9 pg (25.7-33.7); MCHC 33.2 g/dl (32.0-35.9); MEAN PLT VOLUME 9.6 fl (7.5-11.1); MONO % 6.4 % (3.8-10.2); NEUT % 67.1 % (42.8-82.8); PLATELET COUNT 157 10^3/uL (134-434); RBC 4.54 M/mm3 (4.00-5.60); RDW 14.2 % (11.9-15.9); WHITE BLOOD COUNT 8.1 K/mm3 (4.0-10.0)
[2022-11-12 07:24] LABS: POTASSIUM 4.1 mmol/L (3.5-5.1)
[2022-11-12 07:27] LABS: ALBUMIN 2.4 g/dl (3.4-5.0); CALCIUM 8.3 mg/dL (8.5-10.1)
[2022-11-12 07:28] LABS: MAGNESIUM 1.6 mg/dL (1.8-2.4)
[2022-11-12 07:30] LABS: PHOSPHOROUS 2.6 mg/dL (2.5-4.9)
[2022-11-12 07:32] LABS: BILIRUBIN,TOTAL 0.7 mg/dL (0.2-1); TOT PROT 5.3 g/dl (6.4-8.2)
[2022-11-12 07:36] LABS: CREATININE 0.6 mg/dL (0.55-1.3)
[2022-11-12] MEDS ORDERED: MAGNESIUM SULFATE IN WATER 2 GM/50 ML IVPB IVPB ONE (08:30)
[2022-11-12] MEDS: PANTOPRAZOLE SODIUM 40 MG VIAL IVPUSH SCH (09:23)
[2022-11-12] MEDS: LISINOPRIL 5 MG TABLET PO SCH (09:23)
[2022-11-12] MEDS: THIAMINE HCL 200 MG/2 ML VIAL IVPB SCH (09:24)
[2022-11-12] MEDS: MULTIVITAMINS (DAILY MVI) TABLET (FP) PO SCH (09:24)
[2022-11-12] MEDS: LACTATED RINGERS SOLUTION 1,000 ML/1,000 ML INFUS.BAG IV SCH (09:25)
[2022-11-12] MEDS ORDERED: methaDONE HCL 10 MG TABLET PO ONE (10:00)
[2022-11-12] MEDS ORDERED: POLYETHYLENE GLYCOL (HEALTHYLAX) 3350 17 GM PACKET PO SCH (10:15)
[2022-11-12] MEDS ORDERED: INSULIN (NOVOLOG) ASPART 100 UNITS/ML 10ML VIAL ONE ×2 (12:39→16:23)
[2022-11-12] MEDS ORDERED: POLYETHYLENE GLYCOL (HEALTHYLAX) 3350 17 GM PACKET PO PRN (18:36)
[2022-11-13] MEDS: LORazepam 2 MG/ML SDV VIAL IVPUSH PRN ×2 (02:04→22:25)
[2022-11-13] MEDS: HEPARIN NA (PORCINE) 5,000 UNITS/ML 1ML VIAL SQ SCH ×3 (05:58→21:01)
[2022-11-13] MEDS: INSULIN SLIDING SCALE (NOVOLOG) 1 VIAL SQ SCH ×4 (06:00→21:01)
[2022-11-13 07:47] LABS: BASO % 0.7 % (0-2.0); EOS % 1.6 % (0-4.5); HEMATOCRIT 38.2 % (35.4-49); HEMOGLOBIN 12.8 GM/dL (11.7-16.9); LYMPH % 25.4 % (8-40); MCHC 33.6 g/dl (32.0-35.9); MEAN CELL VOLUME 92.3 fl (80-96); MEAN PLT VOLUME 9.3 fl (7.5-11.1); NEUT % 64.3 % (42.8-82.8); PLATELET COUNT 201 10^3/uL (134-434); RBC 4.13 M/mm3 (4.00-5.60); WHITE BLOOD COUNT 6.8 K/mm3 (4.0-10.0)
[2022-11-13 08:21] LABS: POTASSIUM 3.6 mmol/L (3.5-5.1)
[2022-11-13 08:24] LABS: ALBUMIN 2.4 g/dl (3.4-5.0); CALCIUM 8.6 mg/dL (8.5-10.1)
[2022-11-13 08:25] LABS: BLOOD UREA NITROGEN 12.6 mg/dL (7-18)
[2022-11-13 08:27] LABS: MAGNESIUM 1.7 mg/dL (1.8-2.4); PHOSPHOROUS 2.8 mg/dL (2.5-4.9)
[2022-11-13 08:28] LABS: CREATININE 0.8 mg/dL (0.55-1.3)
[2022-11-13 08:29] LABS: BILIRUBIN,TOTAL 0.5 mg/dL (0.2-1); TOT PROT 5.2 g/dl (6.4-8.2)
[2022-11-13] MEDS: THIAMINE HCL 200 MG/2 ML VIAL IVPB SCH (09:02)
[2022-11-13] MEDS: LISINOPRIL 5 MG TABLET PO SCH (09:05)
[2022-11-13] MEDS: MULTIVITAMINS (DAILY MVI) TABLET (FP) PO SCH (09:05)
[2022-11-13] MEDS: PANTOPRAZOLE 20 MG TABLET PO SCH (09:05)
[2022-11-13] MEDS ORDERED: POTASSIUM CHLORIDE TABS 20 MEQ TABLET.ER (FP) PO ONE (10:00)
[2022-11-13] MEDS: ACETAMINOPHEN 325 MG TABLET (FP) PO PRN ×2 (12:49→19:33)
[2022-11-13] MEDS: THIAMINE HCL 100 MG TABLET (FP) PO SCH ×2 (12:59→21:00)
[2022-11-13] MEDS ORDERED: INSULIN (NOVOLOG) ASPART 100 UNITS/ML 10ML VIAL ONE ×2 (16:27→20:46)
[2022-11-14 00:20] VITALS: RESP 18
[2022-11-14] MEDS ORDERED: MELATONIN 5 MG TABLETS PO ONE (02:21)
[2022-11-14] MEDS: LORazepam 2 MG/ML SDV VIAL IVPUSH PRN ×4 (02:31→22:57)
[2022-11-14] MEDS ORDERED: POLYETHYLENE GLYCOL (HEALTHYLAX) 3350 17 GM PACKET PO PRN (04:19)
[2022-11-14] MEDS: ACETAMINOPHEN 325 MG TABLET (FP) PO PRN (04:21)
[2022-11-14] MEDS: HEPARIN NA (PORCINE) 5,000 UNITS/ML 1ML VIAL SQ SCH ×3 (05:53→21:32)
[2022-11-14] MEDS: INSULIN SLIDING SCALE (NOVOLOG) 1 VIAL SQ SCH ×4 (06:27→21:30)
[2022-11-14] MEDS: THIAMINE HCL 100 MG TABLET (FP) PO SCH ×2 (09:45→21:32)
[2022-11-14] MEDS: PANTOPRAZOLE 20 MG TABLET PO SCH (09:45)
[2022-11-14] MEDS: LISINOPRIL 5 MG TABLET PO SCH (09:45)
[2022-11-14] MEDS: MULTIVITAMINS (DAILY MVI) TABLET (FP) PO SCH (09:45)
[2022-11-14] MEDS: BENZOCAINE/MENTH/CETYLPYRD CL 1 EACH LOZENGE MM PRN (09:46)
[2022-11-14] MEDS ORDERED: methaDONE HCL 10 MG TABLET PO ONE ×2 (10:00)
[2022-11-14 10:06] LABS: HEMOGLOBIN 13.3 GM/dL (11.7-16.9); MCHC 33.2 g/dl (32.0-35.9); MEAN CELL VOLUME 93.6 fl (80-96); MEAN PLT VOLUME 9.3 fl (7.5-11.1); PLATELET COUNT 207 10^3/uL (134-434); RBC 4.27 M/mm3 (4.00-5.60); WHITE BLOOD COUNT 5.6 K/mm3 (4.0-10.0)
[2022-11-14] MEDS: INSULIN (LEVEMIR) 100 UNITS/ML UNITS SQ SCH (10:29)
[2022-11-14 10:42] LABS: CALCIUM 9.4 mg/dL (8.5-10.1)
[2022-11-14 10:43] LABS: BLOOD UREA NITROGEN 11.4 mg/dL (7-18); MAGNESIUM 1.8 mg/dL (1.8-2.4)
[2022-11-14 10:46] LABS: CREATININE 0.7 mg/dL (0.55-1.3); PHOSPHOROUS 3.5 mg/dL (2.5-4.9)
[2022-11-14] MEDS ORDERED: INSULIN SLIDING SCALE (NOVOLOG) 1 VIAL SQ ONE (18:23)
[2022-11-14] MEDS: NICOTINE 21 MG/24 HOURS TOPICAL PATCH TD SCH (23:27)
[2022-11-15] MEDS: ACETAMINOPHEN 325 MG TABLET (FP) PO PRN ×2 (00:46→08:45)
[2022-11-15] MEDS: HEPARIN NA (PORCINE) 5,000 UNITS/ML 1ML VIAL SQ SCH ×2 (06:09→14:41)
[2022-11-15] MEDS: INSULIN (LEVEMIR) 100 UNITS/ML UNITS SQ SCH (06:26)
[2022-11-15] MEDS: INSULIN SLIDING SCALE (NOVOLOG) 1 VIAL SQ SCH ×2 (06:26→12:19)
[2022-11-15] MEDS: LORazepam 2 MG/ML SDV VIAL IVPUSH PRN (08:37)
[2022-11-15] MEDS: LISINOPRIL 5 MG TABLET PO SCH (09:50)
[2022-11-15] MEDS: PANTOPRAZOLE 20 MG TABLET PO SCH (09:50)
[2022-11-15] MEDS: NICOTINE 21 MG/24 HOURS TOPICAL PATCH TD SCH (09:50)
[2022-11-15] MEDS: MULTIVITAMINS (DAILY MVI) TABLET (FP) PO SCH (09:50)
[2022-11-15] MEDS: THIAMINE HCL 100 MG TABLET (FP) PO SCH (09:50)
[2022-11-15 11:24] VITALS: BP 132/53; PULSE 72; TEMP 98.2
[2022-11-15] MEDS: BENZOCAINE/MENTH/CETYLPYRD CL 1 EACH LOZENGE MM PRN (12:19)
[2022-11-16] MEDS ORDERED: cloNIDine-TTS 0.3 MG /24 HRS PATCH.TDWK TD SCH (10:00)
== END 2022-11-15 14:41 | disposition home or self-care (01) | DRG 897 ==
LOC: JER 22:43 → JERBED 11-09 00:08 → JICU 11-09 00:51 → J5S 11-14 01:28
PROVIDERS: ADMIT Internal Medicine Pulmonary Disease; ATTEND Internal Medicine
PROC: HZ2ZZZZ Detoxification Services for Substance Abuse Treatment (ICD-10-PCS; principal; 2022-11-08)
DX: F10.231 Alcohol dependence with withdrawal delirium (principal); F33.3 Major depressive disorder, recurrent, severe with psychotic symptoms; E87.3 Alkalosis; F11.23 Opioid dependence with withdrawal; F17.200 Nicotine dependence, unspecified, uncomplicated; E11.65 Type 2 diabetes mellitus with hyperglycemia; F43.10 Post-traumatic stress disorder, unspecified; K21.9 Gastro-esophageal reflux disease without esophagitis; I10 Essential (primary) hypertension; F41.8 Other specified anxiety disorders; E78.5 Hyperlipidemia, unspecified
CPT/HCPCS: 36415; 36600; 70450-TC; 71045-TC-FY; 72125-TC; 80048; 80053; 80307; 81003; 82550; 82553; 82803; 82962; 83690; 83735; 84100; 84484; 85025; 85027; 85610; 85730; 86850; 86900; 86901; 87086; 93005; 93010; 97116-GP; 97162-GP; 99285-25; J1644